=== PATIENT | male | born 1990 | race Caucasian/White ===

== ENCOUNTER 2016-08-25 16:10 | Emergency (ER) | payer OTHER ==
[2016-08-25] MEDS ORDERED: IBUPROFEN 800 MG TABLET PO ONE (16:36)
--- NOTE | 2016-08-25 16:36 | ER Document Report ---
ED Medical Screen (RME) - General Chief Complaint: Low Back Pain Stated Complaint: LOWER BACK PAIN Notes: Patient is a 25-year-old male presents emergency Department complaining of low back pain. Patient stated a history of chronic back pain but [place] injected and has had low back pain ever since. Patient is able to bear weight and ambulate but with pain , doesn't denies any urinary/stool incontinence, saddle anesthesia. I have greeted and performed a rapid initial assessment of this patient. A comprehensive ED assessment and evaluation of the patient, analysis of test results and completion of the medical decision making process will be conducted by additional ED providers. TRAVEL OUTSIDE OF THE [place] IN LAST 30 DAYS: No - Related Data Allergies/Adverse Reactions: Sulfa (Sulfonamide Antibiotics) Allergy (Verified 08/25/16 16:34) Past Medical History - Social History Chew tobacco use (# tins/day): Yes Frequency of alcohol use: Social Drug Abuse: None Renal/ Medical History: Denies: Hx Peritoneal Dialysis Physical Exam - Vital signs Vitals: Temp Pulse Resp BP Pulse Ox 97.9 F 108 H 18 143/104 H 100 08/25/16 16:13 08/25/16 16:13 08/25/16 16:13 08/25/16 16:13 08/25/16 16:13 Course - Vital Signs Vital signs: Temp Pulse Resp BP Pulse Ox 97.9 F 108 H 18 143/104 H 100 08/25/16 16:13 08/25/16 16:13 08/25/16 16:13 08/25/16 16:13 08/25/16 16:13
--- NOTE | 2016-08-25 17:06 | ER Document Report ---
HPI - HPI Patient complains to provider of: back pain Onset: Yesterday Pain Level: 5 Context: Patient presents to the emergency department with complaints of low back pain. He reports he has a history of back pain. He reports he was walking with dog yesterday and the dog took off jarring his back and now his back is hurting more. Denies urinary or bowel incontinence or retention. Denies numbness tingling. Denies history of steroid injections. Complains of pain with movement. He reports he was in a hot tub bath and that helped with the pain. Associated Symptoms: None Exacerbated by: Movement Relieved by: Denies Similar symptoms previously: Yes Recently seen / treated by doctor: No - DERM Skin Color: Normal Past Medical History - General Information source: Patient - Social History Smoking Status: Current Every Day Smoker Cigarette use (# per day): Yes - cigars Chew tobacco use (# tins/day): Yes Frequency of alcohol use: Social Drug Abuse: None Occupation: none Lives with: Family Family History: None Patient has suicidal ideation: No Patient has homicidal ideation: No - Medical History Medical History: Negative Renal/ Medical History: Denies: Hx Peritoneal Dialysis Past Surgical History: Reports: Other - eye surgery Vertical Provider Document - CONSTITUTIONAL Agree With Documented VS: Yes Exam Limitations: No Limitations General Appearance: WD/WN, Mild Distress - Winces with movement - INFECTION CONTROL TRAVEL OUTSIDE OF THE [place] IN LAST 30 DAYS: No - HEENT HEENT: Atraumatic, Normocephalic - NECK Neck: Supple - RESPIRATORY Respiratory: Breath Sounds Normal O2 Sat by Pulse Oximetry: 100 - GI/ABDOMEN Gastrointestinal: Abdomen Soft, Abdomen Non-Tender - BACK Back: Normal Inspection - No obvious deformity good distal movement and sensation no weakness - MUSCULOSKELETAL/EXTREMETIES Musculoskeletal/Extremeties: DOLLY ANGUIANO - NEURO Level of Consciousness: Awake, Alert, Appropriate Motor/Sensory: No Motor Deficit - DERM Integumentary: Warm, Dry Adult Front & Back Diagram: 1 - Complains of low back pain Course - Re-evaluation Re-evalutation: 08/25/16 17:31 Patient instructed on Toradol muscle relaxers. He verbalized understanding to all instructions. He was also instructed on red flags of back pain and return to the emergency department with any concerns. Patient was also instructed on signs and symptoms of allergic reaction to medications. The patient presents with low back pain without signs of spinal cord compression , cauda equine syndrome, infection, aneurysm, or other serious etiology. The patient is neurologically intact. The patient has good distal movement and sensation, denies urinary or bowel incontinence/retention. Given the extremely low risk of these diagnosis, further testing and evaluation for these possibilities does not appear to be indicated at this time. The patient has been instructed to return if the symptoms worsen or change in anyway. - Vital Signs Vital signs: Temp Pulse Resp BP Pulse Ox 97.9 F 108 H 18 143/104 H 100 08/25/16 16:13 08/25/16 16:13 08/25/16 16:13 08/25/16 16:13 08/25/16 16:13 Discharge - Discharge Clinical Impression: Elevated blood pressure reading Low back pain Qualifiers: Chronicity: acute Back pain laterality: bilateral Sciatica presence: without sciatica Qualified Code(s): M54.5 - Low back pain Condition: Stable Disposition: HOME, SELF-CARE Instructions: Ice Packs ([facility]), Low Back Pain ([facility]), Toradol Injection ([facility]), Warm Packs ([facility]), Muscle Strain ([facility]), Muscle Relaxers ([facility]) Additional Instructions: *You have been evaluated for back pain *Take medication as prescribed *Rest/Ice- heat as directed *Follow up with a primary care provider for recheck within one week *Return to ED for worsening condition, changes, needs Prescriptions: Cyclobenzaprine HCl [Flexeril 10 Mg Tablet] 10 mg PO TID #30 tablet Ibuprofen [Motrin 800 mg Tablet] 800 mg PO TID #30 tablet Forms: Elevated Blood Pressure
[2016-08-25] MEDS ORDERED: KETOROLAC TROMETHAMINE 60 MG/2 ML SDV IM ONE (17:13)
[2016-08-25] MEDS ORDERED: METHOCARBAMOL 500 MG TABLET PO ONE (17:13)
[2016-08-25 17:29] VITALS: BP 117/67
== END 2016-08-25 17:29 | disposition home or self-care (01) ==
LOC: ER 16:10
DX: M54.5 Low back pain (principal); X50.0XXA Overexertion from strenuous movement or load, initial encounter; Y93.K1 Activity, walking an animal; R03.0 Elevated blood-pressure reading, without diagnosis of hypertension; F17.290 Nicotine dependence, other tobacco product, uncomplicated
CPT/HCPCS: 99283; 96372; J1885